=== PATIENT | female | born 1985 | race Caucasian/White ===

== ENCOUNTER 2019-05-12 15:56 | Emergency (ER) | payer BC ==
--- OUTSIDE RECORDS SUMMARY | 2019-05-12 16:10 | XMS REPORT | Continuity of Care Document ---
:1985 External Reference #:[id number] Author Name Hanna Voa Deacon Care Team Providers Name Role Phone Yenni Urrutia MD Primary Care Physician Unavailable Payers Date Identification Numbers Payment Provider Subscriber Effective: 2012 Policy Number: [id number] [employer] Expires: 2013 PayID: [id number] [address] [address] [place] [address] Effective: 2011 Policy Number: [id number] [employer] Bryant Expires: 2012 PayID: [id number] [address] [address] [place] [address] Policy Number: [id number] [employer] Mango Bryant PayID: [id number] [address] [address] [place] [address] Problems Active Problems Provider Date Vitamin D deficiency Holley Nieto M.D. Onset: 09/20/2011 Other Pancytopenia Holley Nieto M.D. 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 [place] Tobacco Use Start: Unknown Never Smoked Cigarettes Smoking Status Reviewed: 03/18/19 Never Smoked Cigarettes ETOH Use Denies alcohol use previous mild alcohol intake Tobacco Use Start: Unknown Patient has never smoked Recreational Drug Use Never Used Drugs Exercise Type/Frequency Exercises regularly Allergies, Adverse Reactions, Alerts Description No Known Drug Allergies Medications Active Medications SIG Qnty Indications Ordering Date Provider Low Dose Naltrexone take one capsule 60units R53.83 Flora 02/05/2019 1MG hs x5, increase GOPAL Hernandez by one capsule q5 days til at 4mg Xifaxan 1 by mouth three 42tabs Flora 12/28/2018 550mg Tablets times a day GOPAL Hernandez Neomycin Sulfate 1 by mouth twice 28tabs Flora 12/28/2018 500mg a day GOPAL Hernandez Tablets Adaptogen Blend once daily Unknown Ticture Vitamin B12 Unknown Fertility Tea Unknown Ashwaghanda Unknown Duozyme Digestive Unknown Enzymes Ther-Biotic Complete Unknown Metagenics Dha 1 soft gel daily Unknown 5-HTP Unknown Capsules Digestive Enzyme Unknown Capsules Probiotic 1 by mouth every Unknown Capsules day Magnesium Citrate Unknown 125mg Capsules Vitamin D 1 by mouth every Unknown (Ergocalciferol) day 2000Unit Capsules Iron (Ferrous 1 by mouth twice Unknown Gluconate) a day 256(28Fe) mg Tablets Methylfolate Unknown 400mcg Capsules Complete Unknown 14-0.4mg Tablets History Medications No Active Medications Unknown 11/20/2014 - 06/18/2018 No Active Medications Unknown 11/10/2014 - 11/10/2014 Betamethasone apply topically 15g 373.32 Arsh Galvan NP 11/10/2014 - Dipropionate to affected areas 11/20/2014 0.05% twice a day until Lotion resolved Bactroban apply topically 15g 373.32 Arsh Galvan NP 11/10/2014 - 2% Cream to affected area 11/20/2014 bid Ciprofloxacin HCL 1 tab by mouth 20tabs 599.0 Heidi 03/10/2014 - 500mg twice a day x 10 Cotton, M.D. 11/10/2014 Tablets days No Active Medications Unknown 09/20/2011 - 03/10/2014 Turmeric Unknown - 400mg Capsules 12/01/2018 A-Ogaonw-Z-Cysteine Unknown - 12/01/2018 600mg Capsules Cherry Unknown - 500mg Capsules 12/01/2018 Immunizations CPT Code Status Date Vaccine Lot # [id number] Given 10/16/2012 Tdap - Tetanus/Diptheria/Acellular Pertussis [id number] Vital Signs Date Vital Result Comment 03/18/2019 3:28pm Height 66 inches 5'6" Weight 161.00 lb Heart Rate 84 /min BP Systolic Sitting 115 mmHg Lue BP Diastolic Sitting 76 mmHg Lue Respiratory Rate 14 /min O2 % BldC Oximetry 99 % room air BMI (Body Mass Index) 26.0 kg/m2 02/05/2019 10:36am Height 66 inches 5'6" Weight 164.12 lb Heart Rate 67 /min BP Systolic 128 mmHg BP Diastolic 77 mmHg Body Temperature 98.1 F O2 % BldC Oximetry 99 % BMI (Body Mass Index) 26.5 kg/m2 02/05/2019 10:34am Height 66 inches 5'6" 12/28/2018 10:07am Height 66 inches 5'6" Weight 163.12 lb Heart Rate 74 /min BP Systolic 111 mmHg BP Diastolic 74 mmHg Body Temperature 97.1 F O2 % BldC Oximetry 100 % BMI (Body Mass Index) 26.3 kg/m2 Last Menstrual Period [id number] 12/01/2018 8:33am Height 66 inches 5'6" Weight 160.00 lb Heart Rate 74 /min BP Systolic 107 mmHg BP Diastolic 73 mmHg Body Temperature 97.6 F O2 % BldC Oximetry 99 % BMI (Body Mass Index) 25.8 kg/m2 Last Menstrual Period [id number] 06/18/2018 9:30am Height 66 inches 5'6" Weight 160.00 lb Heart Rate 72 /min BP Systolic 116 mmHg BP Diastolic 62 mmHg O2 % BldC Oximetry 99 % BMI (Body Mass Index) 25.8 kg/m2 Last Menstrual Period [id number] 11/10/2014 8:37am Height 66 inches 5'6" Weight 149.25 lb Heart Rate 82 /min BP Systolic Sitting 112 mmHg BP Diastolic Sitting 78 mmHg Body Temperature 97.6 F O2 % BldC Oximetry 97 % BMI (Body Mass Index) 24.1 kg/m2 03/10/2014 3:55pm Weight 148.00 lb Heart Rate 66 /min BP Systolic Sitting 110 mmHg BP Diastolic Sitting 62 mmHg Body Temperature 99.4 F 03/10/2014 3:49pm Weight 148.50 lb 09/24/2013 1:09pm Height 66 inches 5'6" Weight 152.25 lb Heart Rate 68 /min BP Systolic Sitting 118 mmHg BP Diastolic Sitting 70 mmHg BMI (Body Mass Index) 24.6 kg/m2 10/16/2012 1:08pm Height 67 inches 5'7" Weight 157.00 lb Heart Rate 72 /min BP Systolic Sitting 100 mmHg BP Diastolic Sitting 60 mmHg BMI (Body Mass Index) 24.6 kg/m2 05/08/2012 2:44pm Height 67 inches 5'7" Weight 163.00 lb Heart Rate 68 /min BP Systolic Sitting 104 mmHg BP Diastolic Sitting 70 mmHg BMI (Body Mass Index) 25.5 kg/m2 09/27/2011 4:29pm Height 67 inches 5'7" Weight 156.00 lb Heart Rate 64 /min BP Systolic Sitting 110 mmHg BP Diastolic Sitting 68 mmHg BMI (Body Mass Index) 24.4 kg/m2 09/20/2011 2:46pm Height 67 inches 5'7" Weight 156.00 lb Heart Rate 78 /min BP Systolic Sitting 112 mmHg BP Diastolic Sitting 64 mmHg BMI (Body Mass Index) 24.4 kg/m2 Results Test Date Facility Test Result H/L Range Note CBC Auto Diff 02/09/2019 [facility] White Blood 5.7 10^3/uL N 3.5-10.[address] [place] [address] [phone] Red Blood Count 4.29 10^6/uL N 3.70-4.87 Hemoglobin 13.0 g/dL N 12.0-16.0 Hematocrit 38 % N 35-47 Mean Corpuscular Volume 89 fL N 80-97 Mean Corpuscular Hemoglobin 30 pg N 27-31 Mean Corpuscular HGB Conc 34 g/dL N 31-36 Red Cell Distribution Width 13 % N 10-15 Platelet Count 148 10^3/uL Low 150-450 Mean Platelet Volume 11.8 fL High 7.4-10.4 Abs Neutrophils 3.8 10^3/uL N 1.5-7.7 Abs Lymphocytes 1.3 10^3/uL N 1.0-4.8 Abs Monocytes 0.4 10^3/uL N 0-0.8 Abs Eosinophils 0.1 10^3/uL N 0-0.6 Abs Basophils 0.0 10^3/uL N 0-0.2 Abs Nucleated RBC 0.0 10^3/uL Granulocyte % 67.6 % Lymphocyte % 23.5 % Monocyte % 6.3 % Eosinophil % 2.5 % Basophil % 0.1 % Nucleated Red Blood Cells % 0.1 Laboratory test 02/09/2019 [facility] Progesterone 8.8 ng/mL [address] [place] [address] [phone] Laboratory test 12/22/2018 [facility] TSH (Thyroid 1.23 N 0.34 - [address] DR[address] Stimulating Horm) mcIU/mL 5.60 [place], [place] [id number] [phone] Total T3 133 ng/dL N 87-178 Free T3 3.60 pg/mL N 2.5-3.9 Thyroperoxidase AB 0.59 IU/mL N <9 Laboratory test finding 12/12/2018 [facility] Estradiol 96 pg/ mL [address] [place], [place] [id number] [phone] Progesterone 6.4 ng/mL 3 Testosterone Free 12/12/2018 [facility] Free 0.31 0.06-1.00 [address] Testosterone ng/[place] [address] ng/dl [phone] Testosterone 22 ng/dL 8-60 5 Laboratory test 12/12/2018 [facility] Dhea Sulfate 79 g/dL 45-[address] [place], [place] [address] [phone] Vitamin K Level 2.75 ng/mL Abnormal 0.10-2.20 7 Laboratory 06/18/2018 [facility] Cytology SEE RESULT [address] [place] [address] [phone] O&P Ova & 11/11/2014 [facility] Ova Parasite (SEE NOTE) 9 , [address] [place] [address] [phone] Stool Culture 11/11/2014 [facility] Stool Culture (SEE NOTE) [address] [place], [place] [address] [phone] Celiac Panel 11/11/2014 [facility] Immunoglobulin A 304 mg/dL N 61 - [address] [place] [address] [phone] Tissue Transglutaminase IgA Ab <1.2 U/mL N 12 Celiac Interpretation See Comment N 13 Laboratory test 11/11/2014 [facility] Vitamin B12 463 pg/mL N 180-914 [address] [place] [address] [phone] Comp Metabolic 11/11/2014 [facility] Sodium 136 mmol/L N 133- [address] [place] [address] [phone] Potassium 3.8 mmol/L N 3.5-5.0 Chloride 103 mmol/L N 101-111 Co2 Carbon Dioxide 28 mmol/L N 22-32 Anion Gap 5 mmol/L N 2-11 Glucose 80 mg/dL N 70-100 Blood Urea Nitrogen 13 mg/dL N 6-24 Creatinine 0.65 mg/dL N 0.51-0.95 BUN/Creatinine Ratio 20.0 N 8-20 Calcium 9.3 mg/dL N 8.6-10.3 Total Protein 6.9 g/dL N 6.4-8.9 Albumin 4.4 g/dL N 3.2-5.2 Globulin 2.5 g/dL N 2-4 Albumin/Globulin Ratio 1.8 N 1-3 Total Bilirubin 0.50 mg/dL N 0.2-1.0 Alkaline Phosphatase 28 U/L Low 34-104 Alt 7 U/L N 7-52 Ast 13 U/L N 13-39 Egfr Non- 106.3 N >60 Egfr 136.7 N >60 15 CBC Auto 11/11/2014 [facility] White Blood 4.5 10^3/uL Low 4.8 -10.[address] [place] [address] [phone] Red Blood Count 4.21 10^6/uL N 4.0-5.4 Hemoglobin 12.7 g/dL N 12.0-16.0 Hematocrit 38 % N 35-47 Mean Corpuscular Volume 91 fL N 80-97 Mean Corpuscular Hemoglobin 30 pg N 27-31 Mean Corpuscular HGB Conc 33 g/dL N 31-36 Red Cell Distribution Width 13 % N 10.5-15 Platelet Count 163 10^3/uL N 150-450 Mean Platelet Volume 12 um3 High 7.4-10.4 Abs Neutrophils 3.1 10^3/uL N 1.5-7.7 Abs Lymphocytes 1.1 10^3/uL N 1.0-4.8 Abs Monocytes 0.3 10^3/uL N 0-0.8 Abs Eosinophils 0 10^3/uL N 0-0.6 Abs Basophils 0 10^3/uL N 0-0.2 Abs Nucleated RBC 0 10^3/uL N Granulocyte % 69.2 % N 38-83 Lymphocyte % 23.4 % Low 25-47 Monocyte % 6.1 % N 1-9 Eosinophil % 0.8 % N 0-6 Basophil % 0.5 % N 0-2 Nucleated Red Blood Cells % 0 N Ua Routine 03/10/2014 Supervisor Facepiece Line In House Ua Specific [place] 1.005 Ua PH 8.5 Ua Color yellow Ua Appera clear Ua WBC trace Ua Protein trace Ua Glucose neg Ua Ketones neg Ua Bilirubin small Ua Urobilinogen norm Ua Nitrite neg Ua Occult Blood trace Surgical 10/18/2013 [facility] S RUN DATE: [address] 10/20/ <[place] [address] NOTE> [phone] CBC With Manual 10/07/2013 White Blood 5.9 10^3/uL 4.8-10. Diff Count 8 Red Blood Count 4.04 10^6/uL 4.0-5.4 Hemoglobin 12.0 g/dL 12.0-16.0 Hematocrit 36 % 35-47 Mean Corpuscular Volume 89 fL 80-97 Mean Corpuscular Hemoglobin 30 pg 27-31 Mean Corpuscular HGB Conc 33 g/dL 31-36 Red Cell Distribution Width 13 % 10.5-15 Platelet Count 179 10^3/uL 150-450 Platelet Morphology Large Mean Platelet Volume 12 um3 High 7.4-10.4 Abs Neutrophils 4.1 10^3/uL 1.5-7.7 Abs Lymphocytes 1.4 10^3/uL 1.0-4.8 Abs Monocytes 0.3 10^3/uL 0-0.8 Abs Eosinophils 0.1 10^3/uL 0-0.6 Abs Basophils 0 10^3/uL 0-0.2 Abs Nucleated RBC 0 10^3/uL Neutrophil % 70 % 38-83 Lymphocytes % 24 % Low 25-47 Monocytes % 4 % 0-13 Eosinophils % 2 % 0-6 RBC Morphology Normal Normal Vitamin D, 25 Hydroxy 10/07/2013 25-Hydroxy Vitamin D2 <4.0 ng/mL 25-Hydroxy Vitamin D3 25 ng/mL 25-Hydroxy Vitamin D Total 25 ng/mL 17 Lipid Profile 09/24/2011 [facility] Triglyceride 39 mg/dL Low 40-200 (Trig/Chol/HDL) [address] [place] [address] [phone] Cholesterol 168 mg/dL Less Than 200 18 High Density Lipoprotein 54 mg/dL 40-60 19 Cholesterol/HDL Ratio 3.11 AVERAGE 1-4.44 Low Density Lipoprotein 106 mg/dL High Less Than 100 20 Laboratory test finding 09/24/2011 [facility] Glucose 83 mg/dL 70-[address] [place] [address] [phone] TSH 1.05 MIU/ML 0.34-5.60 Thyroxine Free 0.99 ng/dL 0.61-1.24 Vitamin D, 25 09/20/2011 [facility] 25-Hydroxy Vitamin <4.0 ng/ mL () Hydroxy [address] D[address] [place] [address] [phone] 25-Hydroxy Vitamin D3 26 ng/mL () 25-Hydroxy Vitamin D Total 26 ng/mL () 21 CBC Auto Diff 09/20/2011 [facility] White Blood 7.1 CUMM 4.8- 10.[address] [place] [address] [phone] Red Cell Count 4.04 CUMM Low 4.2-5.4 Hemoglobin 12.5 g/dL 12.0-16.0 Hematocrit 36 % 35-47 Mean Corpuscular Volume 88 um3 79-97 Mean Corpuscular Hemoglob 31 pg 27-31 Mean Corpuscular HGB Cone 35 g/dL 32-36 Redcell Distribution WDTH 13 % 10.5-15 Platelet Count 172 CUMM 150-450 Mean Platelet Volume 13.3 um3 High 7.4-10.4 Gran % 79.4 % 38-83 Lymph % 16.1 % Low 25-47 Mononuclear % 3.5 % 1-9 Eosinophil % 0.6 % 0-6 Basophil % 0.4 % 0-2 Abs Lymphs 1.1 1.0-4.8 Abs Mononuclear 0.2 0-0.8 Absolute Neutrophil Count 5.6 1.5-7.7 Abs Eosinophils 0 0-0.6 Abs Basophils 0 0-0.2 22 Laboratory test 09/20/2011 [facility] Ferritin 17 NG/ML 11.0- 307 [address] [place] [address] [phone] Vitamin B12 And 09/20/2011 [facility] Vitamin B12 327 pg/mL 180-914 Folate Serum [address] [place] [address] [phone] Folic Acid > 25.6 NG/ML See Below 23 Iron & Iron Binding 09/20/2011 [facility] Iron Total 101 g/dL 28-170 Capacity [address] [place] [address] [phone] Unsaturated Iron Binding 251 g/dL Total Iron Binding Capacity 352 g/dL 250-450 % Iron Saturation 29 % 15-55 1 Female reference ranges for Progesterone: Follicular phase.......0.3 - 1.5 ng/ml Mid-luteal phase.......5.2 - 18.5 ng/ml Postmenopausal.........< 0.8 ng/ml 1st trimester.........4.7 - 50.0 ng/ml 2nd trimester.........19.4 - 45.3 ng/ml 2 Estradiols <40 pg/mL are sent to a reference lab for low range testing. Postmenopausal Females < 20 Ovulating females: by day in cycle relative to LH Peak Follicular phase - 12 10-50 - 4 60-200 Mid-cycle - 1 120-375 Luteal phase + 2 50-155 + 6 60-260 + 12 15-115 3 Female reference ranges for Progesterone: Follicular phase.......0.3 - 1.5 ng/ml Mid-luteal phase.......5.2 - 18.5 ng/ml Postmenopausal.........< 0.8 ng/ml 1st trimester.........4.7 - 50.0 ng/ml 2nd trimester.........19.4 - 45.3 ng/ml 4 ADDITIONAL INFORMATION Testing performed by [facility]. This test was developed and its performance characteristics determined by [facility] in a manner consistent with CLIA requirements. This test has not been cleared or approved by the U.S. Food and Drug Administration. 5 ADDITIONAL INFORMATION Testing performed by Liquid Chromatography-Tandem Mass Spectrometry (LC-MS/MS). This test was developed and its performance characteristics determined by [facility] in a manner consistent with CLIA requirements. This test has not been cleared or approved by the U.S. Food and Drug Administration. Test Performed by: [facility] [place] [address] 6 Test Performed by: [facility] [place] [address] 7 ADDITIONAL INFORMATION This test was developed and its performance characteristics determined by [facility] in a manner consistent with CLIA requirements. This test has not been cleared or approved by the U.S. Food and Drug Administration. Test Performed by: [facility] - [address] [address] 8 SEE RESULT BELOW Name: BRYANTLISETH LoganMANGO : [address]: Berta Booker MD Acct: [id number] Unit: [id number] AGE: 32 Location: [facility] Re06/18/18 SEX: F Status: REG REF SPEC: [id number] MARY: 06/18/18-[address]: Berta Booker MD REQ: [id number] RECD: 06/18/18 STATUS: SOUT _ ORDERED: TP IMAGE ANALYS, HPV/Thin Prep COMMENTS: [id number] Negative for Intraepithelial lesion or Malignancy Date Time Test Result Flag (u) Normal Range 06/18/18 1010 @ HPV RNA Negative Negative @ @ The high-risk HPV types detected by the assay include: 16, @ 18, 31, 33, 35, 39, 45, 51, 52, 56, 58, 59, 66, and 68. A. Ectocervical/Endocervical Specimen Adequacy: Satisfactory of evaluation Transformation zone component identified Patient Information: HPV: High risk HPV RNA testing regardless of pap results. Actual Specimen Date: 06/18/18 Last Menstrual Date: 06/02/18 ?: N Post Menopausal?: N Hysterectomy?: N Signed by and Reported on: BHARTI Cunningham(ASCP) 1527 This Pap test was evaluated with the assistance of the [employer] Cells[employer] Test Imaging System. Due to cytologic findings at the finisher map and chart microscope, comprehensive manual rescreening by a Railroad Track Inspector may be required. The Pap Smear is a screening test designed to aid in the detection of premalignant and malignant conditions of the uterine cervix. It is not a diagnostic procedure and should not be used as the sole means of detecting cervical cancer. Both false- positive and false- negative reports do occur. Depending on your risk status, a Pap smear should be obtained and evaluated every 1-3 years. END OF REPORT DEPARTMENT OF PATHOLOGY, [facility] [place] [address] Silverio Barros M.D. Director [facility] # [id number] 9 HISTORY OF WORMS IN STOOL PER CARDIOVASCULAR RN 10 RUN DATE: 11/15/14 [facility] LAB LIVE PAGE 1 RUN TIME: 145 [facility] [place], [place] [address] Specimen Inquiry Name: MANGO BRYANT : [address]: Arsh Galvan CARDIOVASCULAR RN Acct: [id number] Unit: [id number] AGE: 29 Location: LAB Re11/11/14 SEX: F Status: REG REF SPEC: [id number] MARY: 11/11/[address]: Arsh Galvan NP REQ: [id number] RECD: 11/11/14 STATUS: COMP _ SOURCE: STOOL SPDESC: ORDERED: Stool Culture, O P (Full) COMMENTS: HISTORY OF WORMS IN STOOL PER CARDIOVASCULAR RN QUERIES: Provider Requisition # [id number] Procedure Result Verified Site Stool Culture Final 11/13/14- 0900 ML Result No enteric pathogens isolated Testing for Salmonella, Shigella, Aeromonas, Plesiomonas, Yersinia and Campylobacter are included in a Stool Culture. Vibrio spp not routinely tested for in a stool culture. If testing is desired, please request specifically when placing test order. Sensitivities not routinely performed on stool isolates, as antibiotics may prolong the carriage rate of bacteria. Please contact the microbiology lab if sensitivities are required. Stool Specimen Description Final 11/11/14- 1006 ML Stool Color Brown Stool Form Formed Stool Consistency Soft Shiga Toxin 1 2 Final 11/14/14- 1336 ML Organism 1 Negative Shiga Toxin 1 2 CONTINUED ON NEXT PAGE * ML = Testing performed at Main Lab DEPARTMENT OF PATHOLOGY, [facility] [place] [address] Silverio Barros M.D. Director [facility] # [id number] RUN DATE: 11/15/14 [facility] LAB LIVE PAGE 2 RUN TIME: 1451 [facility] [address] [place], [place] [address] Specimen Inquiry Patient: MANGO BRYANT [id number] (Continued) Specimen: [id number] Collected: 11/11/14 Received: 11/11/14 (Continued) Procedure Result Verified Site Shiga Toxin 1 2 Final (continued) 11/14/14- 1336 Immunochromatographic Assay O P: Giardia/Cryptospor Screen Final 11/11/14- 1355 ML Organism 1 Neg Cryptosporidium/Giardia Giardia and cryptosporidium antigen testing performed by enzyme immunoassay. The use of colonic washes, aspirates or other diluted sample types has not been established and could affect the performance of the assay. Stool samples contaminated with an oily or particulate base (eg. Barium, mineral oil etc.) could interfere with the test and are not recommended. Ova Parasite Concen Full Final 11/15/14- 1451 ML Final Result No Ova Parasites seen by Ethyl Acetate Concentration No Cysts or Trophs Seen on Trichrome smear * ML - MAIN LAB ([facility]) . END OF REPORT * ML = Testing performed at Main Lab DEPARTMENT OF PATHOLOGY, [facility] [place] [address] Silverio Barros M.D. Director [facility] # [id number] RUN DATE: 11/14/14 [facility] LAB LIVE PAGE 1 RUN TIME: 8862 [facility] [address] [place], [place] [address] Specimen Inquiry Name: MANGO BRYANT : [address]: Arsh Galvan NP Acct: [id number] Unit: [id number] AGE: 29 Location: LAB Re11/11/14 SEX: F Status: REG REF SPEC: [id number] MARY: 11/11/140745 [facility] DR: Arsh Galvan CARDIOVASCULAR RN REQ: [id number] RECD: 11/11/14 STATUS: RES _ SOURCE: STOOL SPDESC: ORDERED: Stool Culture, O P (Full) COMMENTS: HISTORY OF WORMS IN STOOL PER CARDIOVASCULAR RN QUERIES: Provider Requisition # [id number] Procedure Result Verified Site Stool Culture Final 11/13/14- 0900 ML Result No enteric pathogens isolated Testing for Salmonella, Shigella, Aeromonas, Plesiomonas, Yersinia and Campylobacter are included in a Stool Culture. Vibrio spp not routinely tested for in a stool culture. If testing is desired, please request specifically when placing test order. Sensitivities not routinely performed on stool isolates, as antibiotics may prolong the carriage rate of bacteria. Please contact the microbiology lab if sensitivities are required. Stool Specimen Description Final 11/11/14- 1006 ML Stool Color Brown Stool Form Formed Stool Consistency Soft Shiga Toxin 1 2 Final 11/14/14- 1336 ML Organism 1 Negative Shiga Toxin 1 2 CONTINUED ON NEXT PAGE * ML = Testing performed at Main Lab DEPARTMENT OF PATHOLOGY, [facility] [place] [address] Silverio Barros M.D. Director [facility] # [id number] RUN DATE: 11/14/14 [facility] LAB LIVE PAGE 2 RUN TIME: 4626 [facility] [address] [place], [place] [address] Specimen Inquiry Patient: MANGO BRYNAT [id number] (Continued) Specimen: [id number] Collected: 11/11/14 Received: 11/11/14 (Continued) Procedure Result Verified Site Shiga Toxin 1 2 Final (continued) 11/14/14- 1336 Immunochromatographic Assay O P: Giardia/Cryptospor Screen Final 11/11/14- 1355 ML Organism 1 Neg Cryptosporidium/Giardia Giardia and cryptosporidium antigen testing performed by enzyme immunoassay. The use of colonic washes, aspirates or other diluted sample types has not been established and could affect the performance of the assay. Stool samples contaminated with an oily or particulate base (eg. Barium, mineral oil etc.) could interfere with the test and are not recommended. Ova Parasite Concen Full PENDING * ML - [facility] ([facility]) . Silverio Smith M.D. END OF REPORT * ML = Testing performed at Main Lab DEPARTMENT OF PATHOLOGY, [address] [place] [address] Silverio Barros M.D. Director [facility] # [id number] 12 REFERENCE VALUE <4.0 (Negative) Test Performed by: [address] [address] Minute Clerk: Andres Ding II, M.D., Ph.D. 13 Negative serology. Celiac disease unlikely. However, approximately 10% of patients with celiac disease are seronegative. Also, patients who are already adhering to a gluten-free diet may be seronegative. If celiac disease is highly clinically suspected, consider HLA-DQ typing. Test Performed by: [facility] - [address] [address] Minute Clerk: Andres Ding II, M.D., Ph.D. 14 Normal Range 180 to 914 Indeterminate Range 145 to 180 Deficient Range <145 15 Because ethnic data is not always readily available, this report includes an eGFR for both -Americans and non- Americans. The National Kidney Disease Education Program (NKDEP) does not endorse the use of the MDRD equation for patients that are not between the ages of 18 and 70, are , have extremes of body size, muscle mass, or nutritional status, or are non- or non-. According to the National Kidney Foundation, irrespective of diagnosis, the stage of the disease is based on the level of kidney function: Stage Description GFR(mL/min/1.73 m(2)) 1 Kidney damage with normal or decreased GFR 90 2 Kidney damage with mild decrease in GFR 60-89 3 Moderate decrease in GFR 30-59 4 Severe decrease in GFR 15-29 5 Kidney failure <15 (or dialysis) 16 RUN DATE: 10/20/13 [facility] LIVE PAGE 1 RUN TIME: [address] [place] [address] Specimen Inquiry Name: MANGO BRYANT : [address]: Scout Chávez MD Acct: [id number] Unit: [id number] AGE: 28 Location: [facility] [facility] Re10/18/13 SEX: F Status: REG REF SPEC: [id number] MARY: 10/18/13- SUBM DR: Scout Chávez MD REQ: [id number] RECD: 10/18/13 STATUS: SHABNAM MASON DR: Holley Nieto MD _ ORDERED: LEVEL IV FINAL DIAGNOSIS Skin, right upper cutaneous lip, excision: Intradermal melanocytic nevus, congenital pattern; see comment. COMMENT: Melanocytes focally extend to lateral specimen edges. CLINICAL HISTORY Irritating mole PRE-OPERATIVE DIAGNOSIS Intradermal nevus GROSS DESCRIPTION The specimen is received in formalin labeled Mango Odomo, Excision Skin Lesion Right Upper Cutaneous Lip and consists of a 1.4 x 0.6 cm. eduardo-white skin ellipse excised to a depth of 0.3 cm. There is a central 0.6 x 0.6 x 0.3 cm. eduardo-white nodule. The specimen is inked, serially sectioned, and entirely submitted in one cassette. Signed (signature on file) Maryam Bobo MD 1608 END OF REPORT * ML = Testing performed at Main Lab DEPARTMENT OF PATHOLOGY, [address] [place] [address] Silverio Barros M.D. Director [facility] Permit #[id number] 17 -- REFERENCE VALUE -- 25-HYDROXY D TOTAL (D2+D3) Optimum levels in the healthy population are 20-50, patients with bone disease may benefit from higher levels within this range. Test Performed by: [facility] [address] [place] [address] Minute Clerk: Bandar Wills III, M.D. 18 CHOLESTEROL INTERPRETATION: Desirable: Less than 200 MG/DL Borderline-High Risk: 200-239 MG/DL High-Risk: 240 MG/DL and over 19 HDL INTERPRETATION: Undesirable: High Risk: Less than 40 MG/DL Desirable: Low Risk: Greater than 60 MG/DL 20 LDL INTERPRETATION: Low Risk Optimal Level: LDL Less than 100 MG/DL Near or Above Optimal: LDL 100-129 MG/DL Borderline High Risk: LDL 130-159 MG/DL High Risk: LDL 160-189 MG/DL Very High Risk: LDL Greater than 189 MG/DL 21 -- REFERENCE VALUE -- 25-HYDROXY D TOTAL (D2+D3) Optimum levels in the normal population are 25-80 Test Performed by: [facility] Dpt of Lab Med and Pathology [address] [place], [place] [address] Minute Clerk: Bandar Wills III, M.D. 22 Lymphopenia % 23 Please note: New reference range, effective 08/15/11 NORMAL REFERENCE RANGE: GREATER THAN 4.1 NG/ML Encounters Type Date Location Provider Dx Diagnosis Office Visit 02/05/2019 [facility] Florahazel Hernandez, R53.83 Other fatigue 10:30a [facility] A04.8 Other specified bacterial intestinal infections Office Visit 12/28/2018 10:00a [facility] Flora Hernandez K58.1 Irritable bowel [facility] [place] syndrome with constipation R53.83 Other fatigue A04.8 Other specified bacterial intestinal infections [facility] [place] syndrome with constipation R14.0 Abdominal distension (gaseous) R53.83 Other fatigue O03.9 Complete or unsp spontaneous without complication Office Visit 11/10/2014 8:30a [facility] Internal Arsh Galvan, 564.1 Irritable Bowel Medicine - Suite CARDIOVASCULAR RN Syndrome R 373.32 Dermatitis Eyelid Contact & Allergic Office Visit 03/10/2014 3:40p [facility] Internal Heidi 599.0 UTI Urinary Tract Medicine - Du [place] Infection Site Not Ccmob Spec Office Visit 09/24/2013 1:00p [facility] Internal Holley Johnsonell, 284.19 Other Pancytopenia Medicine - M.D. Ccmob 268.9 Vitamin D Deficiency Unspec V70.0 Examination General Medical Routine AT Health Care Facility 724.5 Backache Unspec Office Visit 10/16/2012 1:00p [facility] Internal Holley Gerson, 268.9 Vitamin D Medicine - Ccmob M.D. Deficiency Unspec 284.19 Other Pancytopenia V70.0 Examination General Medical Routine AT [facility] 702.19 Seborrheic Keratosis Other V06.1 Vuwoosakzv-Ptyvnjp-Wsagipnw Combined (DTaP) Office Visit 05/08/2012 2:00p [facility] Internal Holley Nieto, 729.5 Pain In Limb Medicine - M.D. Ccmob Office Visit 09/27/2011 4:20p [facility] Internal Holley Nieto, 284.19 Other Pancytopenia Medicine - M.D. Ccmob 268.9 Vitamin D Deficiency Unspec Office Visit 09/20/2011 2:40p [facility] Chidi Nieto, 268.9 Vitamin D Medicine - Ccmob M.D. Deficiency Unspec 284.19 Other Pancytopenia V70.0 Examination General Medical Routine AT Health [facility] Plan of Treatment Future Appointment(s):04/29/2019 4:00 pm - GOPAL Castellanos at [facility]03/18/2019 - Flora Hernandez, PAR53.83 Other xrewnlqI82.8 Other specified bacterial intestinal infectionsRecommendations:We discussed ways to keep your bowels moving more regularly and the importance of this. please work with the magnesium and get to a max without loose stool you will continue with coffee enema twice aweek as needed you may work on the mid and Right columns on the LOW FODMAPS form do you do TAPPING? I think its great for SIBO, EFT, great you tubes, you might already use this in your practice.Z31.62 Encounter for fertility preservation counselingNew Labs: Progesterone, Ordered: 03/18/19Recommendations:We discussed preparation for . We were in agreement that you will retest the SIBO and our plan is for you to do as well as you can with nutrition, rest, etc with hopes for fall conception. You can restart the herbs after the SIBO test.
--- OUTSIDE RECORDS SUMMARY | 2019-05-12 16:10 | XMS REPORT | Continuity of Care Document ---
:1985 External Reference #:[id number] Author Name Wendy Baldwin Care Team Providers Name Role Phone Yenni Urrutia MD Primary Care Physician Unavailable Payers Date Identification Numbers Payment Provider Subscriber Effective: 2012 Policy Number: [id number] [employer]ets Mango Bryant Expires: 2013 PayID: [id number] [address] [address] [place] [address] Effective: 2011 Policy Number: [id number] [employer]ets Mango Bryant Expires: 2012 PayID: [id number] [address] [address] [place] [address] Policy Number: [id number] [employer]ets Mango Bryant PayID: [id number] [address] [address] [place] [address] Problems Active Problems Provider Date Vitamin D [...] With Daughter Lives With 2 cats 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 Grew up on [place] Tobacco Use Start: Unknown Never Smoked Cigarettes [...] 03/10/2014 Turmeric Unknown - 400mg Capsules 12/01/2018 Q-Eezaic-B-Cysteine Unknown - 12/01/2018 600mg Capsules Cherry Unknown - 500mg Capsules 12/01/2018 Immunizations CPT Code Status Date Vaccine Lot # [id number] Given 10/16/2012 Tdap - Tetanus/Diptheria/Acellular Pertussis [id number] Vital Signs Date Vital Result Comment 03/18/2019 [...] Mass Index) 26.3 kg/m2 Last Menstrual Period [id number] 12/01/2018 8:33am Height 66 inches 5'6" Weight 160.00 lb Heart Rate 74 /min BP Systolic 107 mmHg BP Diastolic 73 mmHg Body Temperature 97.6 F O2 % BldC Oximetry 99 % BMI (Body Mass Index) 25.8 kg/m2 Last Menstrual Period [id number] 06/18/2018 9:30am Height 66 inches 5'6" Weight 160.00 lb Heart Rate 72 /min BP Systolic 116 mmHg BP Diastolic 62 mmHg O2 % BldC Oximetry 99 % BMI (Body Mass Index) 25.8 kg/m2 Last Menstrual Period 6271118 11/10/2014 8:37am Height 66 inches 5'6" Weight [...] H/L Range Note CBC Auto Diff 02/09/2019 [facility] White Blood 5.7 10^3/uL N 3.5-10.[address] [place] [address] [phone] Red Blood Count 4.29 10^6/uL N 3.70-4.87 [...] Blood Cells % 0.1 Laboratory test 02/09/2019 [facility] Progesterone 8.8 ng/mL [address] [place], [place] [id number] [phone] Laboratory test 12/22/2018 [facility] TSH (Thyroid 1.23 N 0.34 - finding DRIVE Stimulating Horm) mcIU/mL 5.60 [place], [place] [address] [phone] Total T3 133 ng/dL N 87-178 Free T3 3.60 pg/mL N 2.5-3.9 Thyroperoxidase AB 0.59 IU/mL N <9 Laboratory test finding 12/12/2018 [facility] Estradiol 96 pg/ mL [address] [place] [address] [phone] Progesterone 6.4 ng/mL 3 Testosterone Free 12/12/2018 [facility] Free 0.31 0.06-1.00 [address] DRIVE Testosterone ng/[place] [address] ng/dl [phone] Testosterone 22 ng/dL 8-60 5 Laboratory test 12/12/2018 [facility] Dhea Sulfate 79 g/dL 45-[address] [place] [address] [phone] Vitamin K Level 2.75 ng/mL Abnormal 0.10-2.20 7 Laboratory 06/18/2018 [facility] Cytology SEE RESULT [address] [place] [address] [phone] O&P Ova & 11/11/2014 [facility] Ova Parasite (SEE NOTE) 9 , [address] [place] [address] [phone] Stool Culture 11/11/2014 [facility] Stool Culture (SEE NOTE) [address] [place] [address] [phone] Celiac Panel 11/11/2014 [facility] Immunoglobulin A 304 mg/dL N 61 - [address] [place] [address] [phone] Tissue Transglutaminase IgA Ab <1.2 U/mL N 12 Celiac Interpretation See Comment N 13 Laboratory test 11/11/2014 [facility] Vitamin B12 463 pg/mL N 180-914 [address] [place] [address] [phone] Comp Metabolic 11/11/2014 [facility] Sodium 136 mmol/L N 133- [address] [place] [address] [phone] Potassium 3.8 mmol/L N 3.5-5.0 Chloride 103 [...] 136.7 N >60 15 CBC Auto 11/11/2014 [facility] White Blood 4.5 10^3/uL Low 4.8 -10.[address] [place] [address] [phone] Red Blood Count 4.21 10^6/uL N 4.0-5.4 [...] Cells % 0 N Ua Routine 03/10/2014 [employer] In House Ua Specific [place] 1.005 Ua PH 8.5 Ua Color yellow Ua Appera clear Ua WBC trace Ua Protein trace Ua Glucose neg Ua Ketones neg Ua Bilirubin small Ua Urobilinogen norm Ua Nitrite neg Ua Occult Blood trace Surgical 10/18/2013 [facility] S RUN DATE: [address] 10/20/ <[place] [address] NOTE> [phone] CBC With Manual 10/07/2013 White Blood 5.9 [...] Total 25 ng/mL 17 Lipid Profile 09/24/2011 [facility] Triglyceride 39 mg/dL Low 40-200 (Trig/Chol/HDL) [address] [place] [address] [phone] Cholesterol 168 mg/dL Less Than 200 18 High Density Lipoprotein 54 mg/dL 40-60 19 Cholesterol/HDL Ratio 3.11 AVERAGE 1-4.44 Low Density Lipoprotein 106 mg/dL High Less Than 100 20 Laboratory test finding 09/24/2011 [facility] Glucose 83 mg/dL 70-[address] [place] [address] [phone] TSH 1.05 MIU/ML 0.34-5.60 Thyroxine Free 0.99 ng/dL 0.61-1.24 Vitamin D, 25 09/20/2011 [facility] 25-Hydroxy Vitamin <4.0 ng/ mL () Hydroxy [address] [place] [address] [phone] 25-Hydroxy Vitamin D3 26 ng/mL () 25-Hydroxy Vitamin D Total 26 ng/mL () 21 CBC Auto Diff 09/20/2011 [facility] White Blood 7.1 CUMM 4.8- 10.[address] [place] [address] [phone] Red Cell Count 4.04 CUMM Low 4.2-5.4 [...] Basophils 0 0-0.2 22 Laboratory test 09/20/2011 [facility] Ferritin 17 NG/ML 11.0- 307 [address] [place] [address] [phone] Vitamin B12 And 09/20/2011 [facility] Vitamin B12 327 pg/mL 180-914 Folate Serum [address] [place] [address] [phone] Folic Acid > 25.6 NG/ML See Below 23 Iron & Iron Binding 09/20/2011 [facility] Iron Total 101 g/dL 28-170 Capacity [address] [place] [address] [phone] Unsaturated Iron Binding 251 g/dL Total Iron [...] developed and its performance characteristics determined by [facility] in a manner consistent with CLIA requirements. This test has not been cleared or approved by the U.S. Food and Drug Administration. 5 ADDITIONAL INFORMATION Testing performed by Liquid Chromatography-Tandem Mass Spectrometry (LC-MS/MS). This test was developed and its performance characteristics determined by [facility] in a manner consistent with CLIA requirements. This test has not been cleared or approved by the U.S. Food and Drug Administration. Test Performed by: [facility] - [address] [address] 6 Test Performed by: [facility] [place] [address] 7 ADDITIONAL INFORMATION This test was developed and its performance characteristics determined by [facility] in a manner consistent with CLIA requirements. This test has not been cleared or approved by the U.S. Food and Drug Administration. Test Performed by: [facility] - [address] [address] 8 SEE RESULT BELOW Name: BRYANTMANGO Logan : [address]: Berta Booker MD Acct: [id number] Unit: [id number] AGE: 32 Location: [facility] Re/25/18 SEX: F Status: REG REF SPEC: [id number] MARY: 06/18/18-[address]: Berta Booker MD REQ: [id number] RECD: 06/18/18 STATUS: SOUT _ ORDERED: TP IMAGE ANALYS, HPV/Thin Prep COMMENTS: [id number] Negative for Intraepithelial lesion or Malignancy Date [...] was evaluated with the assistance of the [employer] Solarp Test Imaging System. Due to cytologic findings at the funeral sales manager microscope, comprehensive manual rescreening by a Contact And Service Clerks Supervisor may be required. The Pap Smear is [...] years. END OF REPORT DEPARTMENT OF PATHOLOGY, [facility] [place] [address] Silverio Barros M.D. Director [facility] # [id number] HISTORY OF WORMS IN STOOL PER LASER PRINT OPERATOR 10 RUN DATE: 11/15/14 [facility] LAB LIVE PAGE 1 RUN TIME: 14[address] [facility] [place], [place] [address] Specimen Inquiry Name: MANGO BRYANT : [address]: Arsh Galvan LASER PRINT OPERATOR Acct: [id number] Unit: [id number] AGE: 29 Location: LAB Re11/11/14 SEX: F Status: REG REF SPEC: [id number] MARY: 11/11/[address]: Arsh Galvan NP REQ: [id number] RECD: 11/11/14 STATUS: COMP _ SOURCE: STOOL SPDESC: ORDERED: Stool Culture, O P (Full) COMMENTS: HISTORY OF WORMS IN STOOL PER LASER PRINT OPERATOR QUERIES: Provider Requisition # [id number] Procedure Result Verified Site Stool Culture Final [...] performed at Main Lab DEPARTMENT OF PATHOLOGY, [facility] [place] [address] Silverio Barros M.D. Director [facility] # [id number] RUN DATE: 11/15/14 [facility] LAB LIVE PAGE 2 RUN TIME: [address] [facility] [place], [place] [address] Specimen Inquiry Patient: MANGO BRYANT [id number] (Continued) Specimen: [id number] Collected: 11/11/14 Received: 11/11/14 (Continued) Procedure Result [...] Trichrome smear * ML - MAIN LAB ([facility]) . END OF REPORT * ML = Testing performed at Main Lab DEPARTMENT OF PATHOLOGY, [facility] [place] [address] Silverio Barros M.D. Director [facility] # [id number] RUN DATE: 11/14/14 [facility] LAB LIVE PAGE 1 RUN TIME: [address] [facility] [place], [place] [address] Specimen Inquiry Name: MANGO BRYANT : [address]: Arsh Galvan LASER PRINT OPERATOR Acct: [id number] Unit: [id number] AGE: 29 Location: LAB Re11/11/14 SEX: F Status: REG REF SPEC: [id number] MARY: 11/11/14-[address] [facility] [address]: Arsh Galvan NP REQ: [id number] RECD: 11/11/14 STATUS: RES _ SOURCE: STOOL SPDESC: ORDERED: Stool Culture, O P (Full) COMMENTS: HISTORY OF WORMS IN STOOL PER LASER PRINT OPERATOR QUERIES: Provider Requisition # [id number] Procedure Result Verified Site Stool Culture Final [...] performed at Main Lab DEPARTMENT OF PATHOLOGY, [facility] [place] [address] Silverio Barros M.D. Director [facility] # [id number] RUN DATE: 11/14/14 [facility] LAB LIVE PAGE 2 RUN TIME: [address] [facility] [place], [place] [address] Specimen Inquiry Patient: MANGO BRYANT [id number] (Continued) Specimen: [id number] Collected: 11/11/14 Received: 11/11/14 (Continued) Procedure Result [...] Parasite Concen Full PENDING * ML - [facility] ([facility]) . Silverio Smith M.D. END OF REPORT * ML = Testing performed at Main Lab DEPARTMENT OF PATHOLOGY, [address] [place] [address] Silverio Barros M.D. Director [facility] # [id number] 12 REFERENCE VALUE <4.0 (Negative) Test Performed by: [address] [address] Or Assistant: Andres Ding II, M.D., Ph.D. 13 Negative serology. Celiac disease unlikely. However, approximately 10% of patients with celiac disease are seronegative. Also, patients who are already adhering to a gluten-free diet may be seronegative. If celiac disease is highly clinically suspected, consider HLA-DQ typing. Test Performed by: [facility] - [address] [address] Or Assistant: Andres Ding II, M.D., Ph.D. 14 Normal [...] <15 (or dialysis) 16 RUN DATE: 10/20/13 [facility] LAB LIVE PAGE 1 RUN TIME: [address] [place] [address] Specimen Inquiry Name: MANGO BRYANT : [address]: Scout Chávez MD Acct: [id number] Unit: [id number] AGE: 28 Location: [facility] Re10/18/13 SEX: F Status: REG REF SPEC: [id number] MARY: 10/18/13- SUBM DR: Scout Chávez MD REQ: [id number] RECD: 10/18/13 STATUS: SHABNAM MASON DR: Holley [...] performed at Main Lab DEPARTMENT OF PATHOLOGY, [address] [place] [address] Silverio Barros M.D. Director [facility] Permit #[id number] 17 -- REFERENCE VALUE -- 25-HYDROXY D TOTAL (D2+D3) Optimum levels in the healthy population are 20-50, patients with bone disease may benefit from higher levels within this range. Test Performed by: [facility] - [address] [address] Or Assistant: Bandar Wills III, M.D. 18 CHOLESTEROL INTERPRETATION: [...] normal population are 25-80 Test Performed by: [facility] Dpt of Lab Med and Pathology [address] [place] [address] Or Assistant: Bandar Wills III, M.D. 22 Lymphopenia % 23 Please note: New reference range, effective 08/15/11 NORMAL REFERENCE RANGE: GREATER THAN 4.1 NG/ML Encounters Type Date Location Provider Dx Diagnosis Office Visit 02/05/2019 [facility] Flora Hernandez, R53.83 Other fatigue 10:30a [facility] [place] A04.8 Other specified bacterial intestinal infections Office Visit 12/28/2018 10:00a [facility] Flora Hernandez K58.1 Irritable bowel [facility] [place] syndrome with constipation R53.83 Other fatigue A04.8 Other specified bacterial intestinal infections [facility] K[facility] In[facility] [place] syndrome with constipation R14.0 Abdominal distension (gaseous) R53.83 Other fatigue O03.9 Complete or unsp spontaneous without complication Office Visit 11/10/2014 8:30a [facility] Internal Arsh Galvan, 564.1 Irritable Bowel Medicine - Suite LASER PRINT OPERATOR Syndrome R 373.32 Dermatitis Eyelid Contact & Allergic Office Visit 03/10/2014 3:40p [facility] Internal Heidi 599.0 UTI Urinary Tract Medicine - [place] Infection Site Not Ccmob Spec Office Visit 09/24/2013 1:00p [facility] Internal Holley Nieto, 284.19 Other Pancytopenia Medicine - M.D. Ccmob 268.9 Vitamin D Deficiency Unspec V70.0 Examination General Medical Routine AT Health Care Facility 724.5 Backache Unspec Office Visit 10/16/2012 1:00p [facility] Internal Holley Nieto, 268.9 Vitamin D Medicine - Ccmob M.D. Deficiency Unspec 284.19 Other Pancytopenia V70.0 Examination General Medical Routine AT Health Care Facility 702.19 Seborrheic Keratosis Other V06.1 Ilyeatjwgj-Ybxkngk-Gdxwstzt Combined (DTaP) Office Visit 05/08/2012 2:00p [facility] Internal Holley Nieto, 729.5 Pain In Limb Medicine - M.D. Ccmob Office Visit 09/27/2011 4:20p [facility] Internal Holley Nieto, 284.19 Other Pancytopenia Medicine - M.D. Ccmob 268.9 Vitamin D Deficiency Unspec Office Visit 09/20/2011 2:40p [facility] Chidi Nieto, 268.9 [facility] Def[facility] Unspec 284.19 Other Pancytopenia V70.0 Examination General Medical Routine AT Health Care Facility Plan of Treatment Future Appointment(s):04/29/2019 4:00 pm - GOPAL Castellanos at [facility]03/18/2019 - Flora Hernandez, PAR53.83 Other lcdcmtxP63.8 Other specified bacterial intestinal infectionsRecommendations:please work with the magnesium and get to a max without loose stool you will continue with coffee enema twice a week as needed you may work on the mid and Right columns on the LOW FODMAPS form do you do TAPPING? I think its great for SIBO, EFT, great you tubes, you might already use this in your practice.
[2019-05-12 17:14] LABS: Albumin 4.4 g/dL (3.2-5.2); Albumin/Globulin Ratio 1.7 (1-3); C Reactive Protein 1.57 mg/L (<8.01); Calcium 9.3 mg/dL (8.6-10.3); EGFR African American 162.4 (>60); EGFR Non-African American 134.2 (>60); Globulin 2.6 g/dL (2-4); Potassium 3.8 mmol/L (3.5-5.0); Total Bilirubin 0.3 mg/dL (0.2-1.0)
[2019-05-12 17:29] LABS: ABS Eosinophils 0.2 10^3/ul (0-0.6); ABS Lymphocytes 1.6 10^3/ul (1.0-4.8); ABS Monocytes 0.4 10^3/ul (0-0.8); ABS Neutrophils 5.8 10^3/ul (1.5-7.7); Eosinophil % 2.1 %; Hematocrit 37 % (35-47); Hemoglobin 12.9 g/dL (12.0-16.0); Lymphocyte % 19.7 %; Mean Corpuscular HGB Conc 35 g/dL (31-36); Mean Corpuscular Hemoglobin 31 pg (27-31); Mean Corpuscular Volume 89 fL (80-97); Mean Platelet Volume 12.2 fL (7.4-10.4); Nucleated Red Blood Cells % 0.1; Platelet Count 165 10^3/uL (150-450); Red Blood Count 4.22 10^6 /uL (3.70-4.87); Red Cell Distribution Width 13 % (10-15); White Blood Count 7.9 10^3/uL (3.5-10.8)
--- NOTE | 2019-05-12 18:33 | ED ---
Abdominal Pain/Female - HPI Summary HPI Summary: Pt is a 33 y/o F at 8 weeks pregnany by LMP presenting to the ED with a chief complaint of intermittent abdominal pain in the LLQ. She states she's had intermittent cramping and left lower quadrant, not associated with nausea vomiting or fevers. Patient also states she is 8wks and had lab work done today and her progesterone levels dropped. She also notes that she has lost her symptoms and is concerned she may have miscarried. She denies N/V and vaginal bleeding. No vaginal discharge, history of STDs. A2 1 1 miscarriage - History of Current Complaint Chief Complaint: EDOBProblems Stated Complaint: 8 WKS PREG/CRAMPING PER PT Time Seen by Provider: 05/12/19 18:07 Hx Obtained From: Patient ?: Yes - 8wks Onset/Duration: Gradual Onset, Lasting Days, Still Present Timing: Days Severity Initially: Moderate Severity Currently: Moderate Pain Intensity: 6 Pain Scale Used: 0-10 Numeric Location: Discrete At: LLQ Radiates: No Aggravating Factor(s): Nothing Alleviating Factor(s): Nothing Associated Signs and Symptoms: Negative: Vaginal Bleeding, Nausea, Vomiting Allergies/Adverse Reactions: Allergies Allergy/AdvReac Type Severity Reaction Status Date / Time No Known Allergies Allergy Verified 05/12/19 16:00 PMH/Surg Hx/FS Hx/Imm Hx Previously Healthy: Yes Endocrine/Hematology History: Denies: Hx Diabetes Sensory History: Reports: Hx Contacts or Glasses Opthamlomology History: Reports: Hx Contacts or Glasses EENT History: Denies: Hx Deafness Infectious Disease History: No Infectious Disease History: Denies: Traveled Outside the [place] in Last 30 Days - Family History Known Family History: Negative: Hypertension - Social History Alcohol Use: None Hx Substance Use: No Substance Use Type: Reports: None Hx Tobacco Use: No Smoking Status (MU): Never Smoked Tobacco Review of Systems Positive: Abdominal Pain. Negative: Vomiting, Nausea Negative: other - vaginal bleeding All Other Systems Reviewed And Are Negative: Yes Physical Exam - Summary Physical Exam Summary: Constitutional: Well-developed, Well-nourished, Alert. (-) Distressed Skin: Warm, Dry HENT: Normocephalic; Atraumatic Eyes: Conjunctiva normal Neck: Musculoskeletal ROM normal neck. (-) JVD, (-) Stridor, (-) Nuchal rigidity Cardio: Rhythm regular, rate normal, Heart sounds normal; Intact distal pulses; Radial pulses are 2+ and symmetric. (-) Murmur Pulmonary/Chest wall: Effort normal. (-) Respiratory distress, (-) Wheezes, (-) Rales Abd: Soft, mild LLQ tenderness, (-) Distension, (-) Guarding, (-) Rebound Musculoskeletal: (-) Edema Lymph: (-) Cervical adenopathy Neuro: Alert, Oriented x3 Psych: Mood and affect Normal Triage Information Reviewed: Yes Vital Signs On Initial Exam: Initial Vitals Temp Pulse Resp BP Pulse Ox 98.2 F 82 16 139/87 98 05/12/19 15:58 05/12/19 15:58 05/12/19 15:58 05/12/19 15:58 05/12/19 15:58 Vital Signs Reviewed: Yes Diagnostics - Vital Signs Vital Signs Temp Pulse Resp BP Pulse Ox 05/12/19 15:58 98.2 F 82 16 139/87 98 - Laboratory Lab Results: Lab Results 05/12/19 05/12/19 Range/Units 16:52 16:52 WBC 7.9 (3.5-10.8) 10^3/uL RBC 4.22 (3.70-4.87) 10^6 /uL Hgb 12.9 (12.0-16.0) g/dL Hct 37 (35-47) % MCV 89 (80-97) fL MCH 31 (27-31) pg MCHC 35 (31-36) g/dL RDW 13 (10-15) % Plt Count 165 (150-450) 10^3/uL MPV 12.2 H (7.4-10.4) fL Neut % (Auto) 72.8 % Lymph % (Auto) 19.7 % Shelby % (Auto) 5.1 % Eos % (Auto) 2.1 % Baso % (Auto) 0.3 % Absolute Neuts (auto) 5.8 (1.5-7.7) 10^3/ul Absolute Lymphs (auto) 1.6 (1.0-4.8) 10^3/ul Absolute Monos (auto) 0.4 (0-0.8) 10^3/ul Absolute Eos (auto) 0.2 (0-0.6) 10^3/ul Absolute Basos (auto) 0.0 (0-0.2) 10^3/ul Absolute Nucleated RBC 0.0 10^3/ul Nucleated RBC % 0.1 Sodium 135 (135-145) mmol/L Potassium 3.8 (3.5-5.0) mmol/L Chloride 104 (101-111) mmol/L Carbon Dioxide 25 (22-32) mmol/L Anion Gap 6 (2-11) mmol/L BUN 13 (6-24) mg/dL Creatinine 0.52 (0.51-0.95) mg/dL Est GFR ( Amer) 162.4 (>60) Est GFR (Non-Af Amer) 134.2 (>60) BUN/Creatinine Ratio 25.0 H (8-20) Glucose 86 (70-100) mg/dL Calcium 9.3 (8.6-10.3) mg/dL Total Bilirubin 0.30 (0.2-1.0) mg/dL AST 18 (13-39) U/L ALT 13 (7-52) U/L Alkaline Phosphatase 30 L (34-104) U/L C-Reactive Protein 1.57 (<8.01) mg/L Total Protein 7.0 (6.4-8.9) g/dL Albumin 4.4 (3.2-5.2) g/dL Globulin 2.6 (2-4) g/dL Albumin/Globulin Ratio 1.7 (1-3) Lipase 22 (11.0-82.0) U/L Beta HCG, Quant Pending Result Diagrams: 05/12/19 16:52 05/12/19 16:52 Lab Statement: Any lab studies that have been ordered have been reviewed, and results considered in the medical decision making process. - Ultrasound Transvaginal US Ultrasound Interpretation Completed By: Radiologist Summary of Ultrasound Findings: Viable intrauterine with an ultrasound age of 8 weeks 2 days which is concordant with the clinical age. ED physician has reviewed this report. - EKG 1900 Cardiac Rate: NL - 79bpm EKG Rhythm: Sinus Rhythm ST Segment: Normal Ectopy: None EKG Comparison: No Significant Change Summary of EKG Findings: EKG at 1900 shows NSR at 79bpm with no STEMI. No change from prior. Re-Evaluation - Re-Evaluation 1st re-eval Re-Evaluation Time: 19:47 Change: Improved Comment: Pt feeling relieved. 2nd re-eval Re-Evaluation Time: 20:48 Change: Unchanged Comment: Informed pt of US results. Low suspicion for torsion given intermittent mild pain, but discussed with patient that she is high-risk for torsion given ovarian cyst. Patient to return for worsening symptoms, and follow-up with OB. Abdominal Pain Fem Course/Dx - Course Course Of Treatment: 33 y/o F at 8 weeks by LMP p/w LLQ pain. - check labs including HCG, TVUS to assess for ectopic, UA. Patient is well appearing without significant pain on exam. ddx includes: ovarian cyst, torsion , ectopic, UTI, renal stone. Low suspicion for PID, or TOA given lack of infectious symptoms. Lower suspicion for torsion given mild intermittent pain. - Diagnoses Provider Diagnoses: Corpus luteum cyst Discharge ED - Sign-Out/Discharge Documenting (check all that apply): Patient Departure Patient Received Moderate/Deep Sedation with Procedure: No - Discharge Plan Condition: Stable Disposition: HOME Patient Education Materials: Ovarian Cyst (ED) Referrals: Flora Hernandez PA [Primary Care Provider] - Additional Instructions: You were seen in the emergency department for left sided pain. Your ultrasound showed an ovarian cyst called a corpus luteum cyst that is 3 cm big. This may cause some intermittent pain, if he has severe pain please return to emergency department. Your ultra sound also showed a heart rate of 172 and your baby is measuring at 8 weeks. If any studies were not completed at the time of discharge you will be called with the relevant results. Please follow up with your primary care doctor in next 2-3 days and return to emergency department for worsening or concerning symptoms. It was a pleasure taking care of you today. - Billing Disposition and Condition Condition: STABLE Disposition: Home - Attestation Statements Document Initiated by Scribe: Yes Documenting Scribe: Lori Patel Provider For Whom Wilfrido is Documenting (Include Credential): Franklin Olson MD. Scribe Attestation: Lori Michel, scribed for Franklin Olson MD. on 05/12/19 at 1804. Scribe Documentation Reviewed: Yes Provider Attestation: The documentation as recorded by the scribe, Lori Patel accurately reflects the service I personally performed and the decisions made by me, Franklin Olson MD. Status of Scribe Document: Viewed
[2019-05-12 18:39] LABS: Urine Appearance Clear; Urine Bilirubin Negative (Negative); Urine Blood Negative (Negative); Urine Color Yellow; Urine Glucose Negative (Negative); Urine Ketones Negative (Negative); Urine Nitrite Negative (Negative); Urine Protein Negative (Negative); Urine Specific Gravity 1.011 (1.010-1.030); Urine Urobilinogen Negative (Negative)
[2019-05-12 20:59] VITALS: BP 110/82
== END 2019-05-12 20:58 | disposition home or self-care (01) ==
LOC: ED 15:56
DX: N83.10 Corpus luteum cyst of ovary, unspecified side (principal); R10.32 Left lower quadrant pain; Z34.91 Encounter for supervision of normal pregnancy, unspecified, first trimester; Z3A.08 8 weeks gestation of pregnancy
CPT/HCPCS: 36415; 76817; 80053; 81003; 83690; 84702; 85025; 86140; 99283

== ENCOUNTER 2019-06-06 06:45 | Emergency (ER) | payer BC ==
--- NOTE | 2019-06-06 07:49 | ED ---
- HPI Summary HPI Summary: Patient is a 33-year-old female who presents emergency department for vaginal spotting since last night. Patient notes she is 12 weeks gestation. Patient notes miscarriage in the past. Patient states she had very minimal abdominal cramping that has resolved. Patient notes that is only when she wipes with toilet paper. Symptoms are mild in severity. Denies urinary symptoms, fever, chest pain, shortness breath. No current modifying factors. Blood type is noted to be Rh+ in records. - History of Current Complaint Chief Complaint: EDVaginalBleeding Stated Complaint: 12 WEEKS /BLEEDING PER PT Time Seen by Provider: 06/06/19 07:44 Hx Obtained From: Patient Pain Intensity: 1 - Allergies/Home Medications Allergies/Adverse Reactions: Allergies Allergy/AdvReac Type Severity Reaction Status Date / Time No Known Allergies Allergy Verified 06/06/19 06:48 PMH/Surg Hx/FS Hx/Imm Hx Previously Healthy: Yes Endocrine/Hematology History: Denies: Hx Diabetes Sensory History: Reports: Hx Contacts or Glasses Denies: Hx Deafness Opthamlomology History: Reports: Hx Contacts or Glasses Infectious Disease History: No Infectious Disease History: Denies: Traveled Outside the [place] in Last 30 Days - Family History Known Family History: Positive: Non-Contributory Negative: Hypertension - Social History Occupation: Employed Full-time Lives: With Family Alcohol Use: None Hx Substance Use: No Substance Use Type: Reports: None Hx Tobacco Use: No Smoking Status (MU): Never Smoked Tobacco Review of Systems Constitutional: Negative Cardiovascular: Negative Respiratory: Negative Gastrointestinal: Negative Positive: other - vaginal spotting All Other Systems Reviewed And Are Negative: Yes Physical Exam - Physical Exam Triage Information Reviewed: Yes Vital Signs Reviewed: Yes Appearance: Positive: Well-Appearing - Pt. sitting on bed in NAD. Skin: Positive: Warm, Dry Head/Face: Positive: Normal Head/Face Inspection Eyes: Positive: Normal, EOMI Neck: Positive: Supple Respiratory/Lung Sounds: Positive: Clear to Auscultation, Breath Sounds Present Cardiovascular: Positive: Normal, RRR Abdomen Description: Positive: Nontender, Soft Neurological: Positive: Normal, CN Intact II-III Psychiatric: Positive: Affect/Mood Appropriate Procedures - Sedation Patient Received Moderate/Deep Sedation with Procedure: No Diagnostics - Vital Signs Vital Signs Temp Pulse Resp BP Pulse Ox 06/06/19 06:46 98.1 F 89 15 129/78 100 - Laboratory Result Diagrams: 06/06/19 07:53 Lab Statement: Any lab studies that have been ordered have been reviewed, and results considered in the medical decision making process. Course/Dx - Course Course Of Treatment: Patient presenting with very mild vaginal spotting. No reproducible abdominal pain. Patient had ultrasound 3 weeks ago that showed an intrauterine . Beta hCG today is 125,457 which would be consistent with her gestation. Ultrasound was able to Doppler heart tones in the 160 's bpm. Patient reassured. We'll have her call her OB tomorrow for close follow-up appointment. Advised to practice pelvic rest. To return to the ER for severe abdominal pain, increased bleeding, lightheadedness dizziness, chest pain, shortness of breath. Patient understands and agrees with plan. - Differential Diagnosis/HQI/PQRI: Threatened , First Trimester Bleeding - Diagnoses Provider Diagnoses: Vaginal bleeding before 22 weeks gestation, Threatened miscarriage in early Discharge ED - Sign-Out/Discharge Documenting (check all that apply): Patient Departure - Discharge Plan Condition: Good Disposition: HOME Patient Education Materials: Threatened Miscarriage (ED), Non-Threatening First Trimester Vaginal Bleed (ED) Referrals: Jett Rivas JR, DO [Doctor of Osteopathy] - Flora Hernandez PA [Primary Care Provider] - Additional Instructions: Call your OB tomorrow for a close follow up appointment Avoid heavy lifting, strenuous activity, and intercourse Return to ER if symptoms change or worsen - Billing Disposition and Condition Condition: GOOD Disposition: Home
[2019-06-06 08:08] LABS: ABS Eosinophils 0.1 10^3/ul (0-0.6); ABS Lymphocytes 0.5 10^3/ul (1.0-4.8); ABS Monocytes 0.3 10^3/ul (0-0.8); Eosinophil % 1.6 %; Hematocrit 35 % (35-47); Hemoglobin 12.1 g/dL (12.0-16.0); Lymphocyte % 13.7 %; Mean Corpuscular HGB Conc 35 g/dL (31-36); Mean Corpuscular Hemoglobin 31 pg (27-31); Mean Corpuscular Volume 88 fL (80-97); Mean Platelet Volume 11.5 fL (7.4-10.4); Platelet Count 105 10^3/uL (150-450); Red Blood Count 3.92 10^6 /uL (3.70-4.87); Red Cell Distribution Width 13 % (10-15); White Blood Count 3.9 10^3/uL (3.5-10.8)
[2019-06-06 09:40] VITALS: BP 124/94
== END 2019-06-06 09:38 | disposition home or self-care (01) ==
LOC: ED 06:45
DX: O20.0 Threatened abortion (principal); Z3A.12 12 weeks gestation of pregnancy
CPT/HCPCS: 36415; 84702; 85025; 99282

== ENCOUNTER 2019-07-26 12:53 | Emergency (ER) | payer BC, OTHER ==
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
[2019-07-26 13:53] VITALS: BP 118/69
== END 2019-07-26 13:53 | disposition home or self-care (01) ==
LOC: ED 12:53
DX: M25.561 Pain in right knee (principal); V49.40XA Driver injured in collision with unspecified motor vehicles in traffic accident, initial encounter; Y92.410 Unspecified street and highway as the place of occurrence of the external cause
CPT/HCPCS: 99282